=== PATIENT | female | born 1965 | race Caucasian/White ===

== ENCOUNTER 2017-06-20 16:01 | Inpatient (IN) ==
[2017-06-20] MEDS ORDERED: ALBUTEROL/IPRATROPIUM 3 ML NEB RESP TX PRN (16:26)
[2017-06-20] MEDS ORDERED: LACTULOSE 20 GM/30 ML UDCUP PO PRN (16:26)
[2017-06-20] MEDS ORDERED: ACETAMINOPHEN 325 MG TABLET PO PRN (16:26)
[2017-06-20] MEDS ORDERED: BENZONATATE 100 MG CAPSULE PO PRN (16:31)
--- NOTE | 2017-06-20 16:33 | Pulmonology History & Physical ---
History of Present Illness Chief complaint: RML pneumonia, SOB, fever, chills, cough History of present illness: FATEMEH Rodriguez acting as scribe for Dr. Merrill Quinones. Mrs. Simon is a 51 year old /White female admitted from the office on 06/20/17 for acute right middle lobe pneumonia. Patient was seen in the office yesterday as a work in for evaluation of cough, shortness of breath and fever. Symptoms had been present x 2 days and she noted cough was severe and persistent with yellow/green thick sputum production. She admits fever up to around 100 degrees at home. She also admits right sided rib soreness due to cough. Upon review of CXR patient was found to have acute nodular dense appearing infiltrate with air bronchograms in the right middle lobe. Due to the severity of her symptoms and findings of acute pneumonia combined with her past medical history, decision was made to admit to inpatient for further evaluation and treatment. She denies cardiac angina, palpitations, hemoptysis, reflux, solid dysphagia, syncope or near syncope, and symptoms of TIAs. The remainder of the review of systems is negative. ALLERGIES: LEVAQUIN (per clinic records) Home Medicines: ASA 81mg daily. Biotin 50mg daily. Coreg 6.25mg BID. Lasix 40mg BID. Lipitor 40mg at bedtime. Losartan 25mg daily. Magnesium BID. Metformin 1/2 tablet BID (dose not listed). Montelukast 10mg daily. Protonix 40mg daily. Paxil 10mg daily. MicroK 10meQ BID. Tranxene 3.75mg 1 or 2 tabs TID PRN. Ventolin HFA 90mcg/actuation 2 puffs QID PRN. Vitamin B12 1500mcg BID. Co-Q 10 daily. Past Medical History: November 2013 acute CHF with an atypical pattern. History of GERD and solid dysphagia. Bronchospastic disease/COPD. Non-ischemic cardiomyopathy. ICD single chamber pacemaker placed in February [address] Mills. History of pulmonary hypertension. Family History: Positive for heart disease and high blood pressure. Social History: Former smoker quit in 2013. Former alcohol use, denies at this time. . 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 She told me in clinic on 06/20/17 she is a fan of the [employer]. [place] [facility] [place], results as above. Labs and EKG are pending. Home Medications Medication Instructions Recorded Confirmed Type Atorvastatin Calcium 40 mg PO DAILY 01/20/15 01/02/17 History Carvedilol 6.25 mg PO BID 01/20/15 01/02/17 History Furosemide 40 mg PO BID 01/20/15 01/02/17 History Losartan [Cozaar] 25 mg PO DAILY 01/20/15 01/02/17 History Montelukast Sodium 10 mg PO DAILY 01/20/15 01/02/17 History Potassium Chloride Tab [K Dur] 10 meq PO BID 01/20/15 01/02/17 History Ascorbic Acid [Vitamin C] 250 mg PO DAILY 01/02/17 01/02/17 History Aspirin [Aspirin EC] 81 mg PO DAILY 01/02/17 01/02/17 History Biotin 5,000 mcg PO DAILY 01/02/17 01/02/17 History Cyanocobalamin (Vitamin B-12) 500 mcg PO BID 01/02/17 01/02/17 History [Vitamin B-12] Magnesium Chloride [Slow Mag] 64 mg PO BID 01/02/17 01/02/17 History Metformin HCl 250 mg PO BID 01/02/17 01/02/17 History [place]-3 Fatty Acids [Fish Oil 1,000 mg PO DAILY 01/02/17 01/02/17 History Concentrate] PARoxetine [Paxil] 10 mg PO DAILY 01/02/17 01/02/17 History Pantoprazole Tab [Protonix Tab] 40 mg PO DAILY 01/02/17 01/02/17 History Allergies Allergy/AdvReac Type Severity Reaction Status Date / Time No Known Allergies Allergy Verified 01/02/17 07:22 Medical,Surgical,& Family Hx - Medical History Cardio: History of: CHF, Hypertension, Pacemaker (2014), Cardiovascular Problems (CARDIOMYOPATHY) Neurology: No history of: Brain Aneurysm, Cerebral Hemorrhage, Cerebrovascular Accident , Cerebral Palsy, Dementia, Migraine, Multiple Sclerosis, Parkinson's Disease, Peripheral Neuropathy, Seizures, TIA, Vertigo, Neurologocal Cancer Endocrine: History of: Dyslipidemia Respiratory: History of: Bronchitis, Pneumonia Hematology: No history of: Anemia, Blood Transfusion Reaction, Bleeding Problems, Clotting Problems, Sickle Cell Disease, Hematologic Cancer, Blood Disorders Other: No history of: Anesthesia Reactions, Eczema, HIV - Surgical History Cardiac Surgeries: Sugical HX of: Cardiac Catheterization (2014), Internal Defibrillator (2014) Thoracic Surgeries: Patient denies;: Kidney (Renal Surgery), Organ Transplant Neurologic Surgeries: Patient denies: Brain Aneurysm, Cerebral Hemorrhage, Neurologic Surgery HEENT Surgeries: Patient denies: Eye Surgery, Thyroid Surgery, Tonsilectomy & Adenoidectomy Abdominal Surgeries: Patient denies: Abdominal Surgery Reproductive Surgeries: Patient denies;: Genitourinary Surgery - Family History Family History: Reports;: Family Diabetes, Family Hypertension - Social History Smoking Status: Former smoker Results - Labs CBC & BMP: 06/21/17 06:13 06/21/17 06:13 Exam (Pulmonay) H&P - Constitutional Exam: General. No acute distress. Acutely ill appearing. Psychiatric. Oriented 3. Pleasant and cooperative patient. Neurologic. Cranial nerves are intact. Long tract motor function intact. Sensory exam was not done. Gait appears normal. Face. Symmetrical. No masses or rashes. Neck. No meningismus. Thyroid was not palpated. Lymphatics. No submandibular cervical supraclavicular or epitrochlear adenopathy Chest. Symmetrical. Pacemaker present to left upper chest. There are faint rhonchi over the right anterior large airways and right basilar area. I do not hear any wheezing, but she has persistent cough during exam. Heart. Regular rate and rhythm. I do not hear a murmur or gallop. Abdomen. Nontender, nondistended. Bowel sounds are present and active. Extremities. No edema or evidence of deep venous thrombophlebitis. Venous. Exam of the upper and lower extremities normal. Arterial. Carotids normal with good upstroke and no bruits. Pulses of the upper and lower extremities palpable. The remainder the physical exam is negative. Impression: 1. Acute nodular dense appearing infiltrate in the right middle lobe compatible with pneumonia. 2. Fever, productive cough, shortness of breath, secondary to #1. 3. Right sided costochondritis. 4. Past history of non-ischemic cardiomyopathy. 5. History of congestive heart failure. 6. GERD 7. See past history. Plan: 1. Admit to acute inpatient for further evaluation and treatment. 2. Blood cultures x 3 sputums for gram stain culture and sensitivity. 3. Inhalation treatments with Duonebs QID and PRN. 4. IV Cleocin and Merrem as ordered. 5. Continue home medicines. 6. See orders.
[2017-06-20] MEDS ORDERED: CLORAZEPATE 3.75 MG TABLET PO PRN (17:01)
--- NOTE | 2017-06-20 18:07 | Order Completion Report ---
See report scanned to EMR
[2017-06-20 18:16] LABS: Magnesium 2.2 MG/DL (1.8-2.4); Thyroid Stimulating Hormone 2.78 uIU/ml (0.358-3.74)
[2017-06-20] MEDS: methylPREDNISolone SOD SUC 40 MG/1 ML VIAL IV SCH (18:20)
[2017-06-20] MEDS: CLINDAMYCIN INJ 300 MG in PREMIX 1 EACH IV SCH (18:25)
[2017-06-20 18:59] LABS: Apearance,Urine CLOUDY (Clear); Bilirubin,Urine Negative (Negative); Blood, Urine Large mg/dL (Negative); Glucose,Urine (UA) Negative (Negative); Ketones,Urine 5 mg/dL (Negative); Mucus,Urine Occasional /LPF (Occasional); Nitrite,Urine Negative (Negative); Protein,Urine 100 MG/DL; RBC,Urine 368 /HPF (0-4); Squamous Epithelial Cell,Urine Few /HPF (0-10); Urine Specific Gravity 1.016 (1.001-1.035); WBC,Urine 12 /HPF (0-6)
[2017-06-20 19:00] LABS: Urine Color Yellow (Yellow)
[2017-06-20 19:08] LABS: Calcium 8.9 MG/DL (8.5-10.1); Osmolality,Calculated 275.5 MOS/KG (273-304); Potassium 3.2 MMOL/L (3.5-5.1)
[2017-06-20] MEDS: ALBUTEROL/IPRATROPIUM 3 ML NEB RESP TX SCH (20:06)
[2017-06-20] MEDS: MEROPENEM 1,000 MG in SODIUM CHLORIDE 0.9% 50 ML IV SCH (20:38)
[2017-06-20] MEDS: MAGNESIUM CHLORIDE 64 MG TABLET PO SCH (20:46)
[2017-06-20] MEDS: CYANOCOBALAMIN 500 MCG TABLET PO SCH (20:46)
[2017-06-20] MEDS: POTASSIUM CHLORIDE 10 MEQ TABLET PO SCH (20:47)
[2017-06-20] MEDS: ZALEPLON 5 MG CAPSULE PO PRN (20:47)
[2017-06-20] MEDS: ATORVASTATIN 40 MG TABLET PO SCH (20:48)
[2017-06-20] MEDS: CARVEDILOL 6.25 MG TABLET PO SCH (20:48)
[2017-06-20] MEDS: MONTELUKAST 10 MG TABLET PO SCH (20:53)
[2017-06-21] MEDS: CLINDAMYCIN INJ 300 MG in PREMIX 1 EACH IV SCH ×4 (00:26→17:42)
[2017-06-21] MEDS: MEROPENEM 1,000 MG in SODIUM CHLORIDE 0.9% 50 ML IV SCH ×3 (04:28→20:20)
[2017-06-21] MEDS: methylPREDNISolone SOD SUC 40 MG/1 ML VIAL IV SCH ×2 (05:56→17:42)
[2017-06-21 06:28] LABS: Basophils % 0.4 % (0.0-0.8); Hematocrit 36.8 VOL% (35.7-47.0); Immature Granulocytes % 0.4 %; Immature Granulocytes Absolute 0.01 #; Lymphocytes % 38.1 % (21.3-54.2); Mean Corpuscular HGB Conc 35.3 GM/DL (32-36); Mean Corpuscular Hemoglobin 32 PG (27-34); Mean Corpuscular Volume 91.1 FL (87-102); Mean Platelet Volume 9.4 FL (9.6-12.0); Monocytes # 0.3 10*3/uL (0.11-0.8); Monocytes % 9.3 % (1.7-12.7); Neutrophils # 1.4 10*3/uL (1.4-7.4); Neutrophils % 51.8 % (38.7-73.9); Platelet Count 189 T/CUMM (130-400); Red Blood Count 4.04 MC/CUMM (3.8-5.5); Red Cell Distribution Width 12.6 % (9.3-17.3); White Blood Count 2.7 T/CUMM (4-12)
[2017-06-21 06:56] LABS: Calcium 9.2 MG/DL (8.5-10.1); Osmolality,Calculated 283.1 MOS/KG (273-304); Potassium 3.8 MMOL/L (3.5-5.1)
[2017-06-21] MEDS: ALBUTEROL/IPRATROPIUM 3 ML NEB RESP TX SCH ×4 (07:32→19:15)
--- NOTE | 2017-06-21 08:26 | XRay Report ---
XR chest 2V Date: 06/21/2017 4:00 AM History: Pneumonia Comparison: 01/20/2015 Technique: PA and lateral chest Findings: The heart remains normal in size with stable left subclavian ventricular AICD. Somewhat nodular appearing parenchymal findings are noted in the right middle lobe. Stable mediastinum with minimal degenerative changes. Impression: Stable left subclavian ventricular AICD. Right middle lobe pneumonia. There is associated nodular findings. Therefore follow-up chest x-ray is recommended to document clearing and exclude additional underlying pathology/mass. PROCEDURE INTERPRETED AT [facility] Final Report Signed by: Dr. Natalia Wesley
[2017-06-21] MEDS: CARVEDILOL 6.25 MG TABLET PO SCH ×2 (08:27→20:24)
[2017-06-21] MEDS: ASPIRIN EC 81 MG TABLET PO SCH (08:27)
[2017-06-21] MEDS: FUROSEMIDE 40 MG TABLET PO SCH ×2 (08:27→16:07)
[2017-06-21] MEDS: CYANOCOBALAMIN 500 MCG TABLET PO SCH ×2 (08:28→20:25)
[2017-06-21] MEDS: MAGNESIUM CHLORIDE 64 MG TABLET PO SCH ×2 (08:29→20:24)
[2017-06-21] MEDS: PARoxetine 10 MG TABLET PO SCH (08:29)
[2017-06-21] MEDS: LOSARTAN 25 MG TABLET PO SCH (08:29)
[2017-06-21] MEDS: MONTELUKAST 10 MG TABLET PO SCH ×2 (08:29→20:24)
[2017-06-21] MEDS: PANTOPRAZOLE 40 MG TABLET PO SCH (08:29)
[2017-06-21] MEDS: POTASSIUM CHLORIDE 10 MEQ TABLET PO SCH ×2 (08:29→20:24)
--- NOTE | 2017-06-21 10:41 | Pulmonology Progress Note ---
Pulmonary - PN: Subj Interval history: Dawoodvibha Olivarez, [facility] acting as scribe for Dr. Merrill Quinones Ms. Simon is a 51-year-old white female who was admitted [facility]/20/[facility]. At the time of admission, our impressions were: 1. Acute nodular dense appearing infiltrate in the right middle lobe compatible with pneumonia. 2. Fever, productive cough, shortness of breath, secondary to #1. 3. Right sided costochondritis. 4. Past history of non-ischemic cardiomyopathy. 5. History of congestive heart failure. 6. GERD 7. See past history 06/21/2017. The patient was seen today along with Ines Hameed RN. Chest x-ray today shows that the previously noted right middle lobe infiltrate is slowly improving. She reports a cough, but it is largely nonproductive. Sputum for Gram stain, culture and sensitivity was ordered admission, however, the patient has been unable to expectorate any sputum. Cold agglutinins are negative at 1: 2. Legionella is pending. Pro-calcitonin was ordered today. Patient does report night sweats last night. She has remained afebrile since admission. She is presently being treated with Cleocin and Merrem. Of note, the patient does have history of tobacco abuse, but did stop smoking in 2013. Medications have been reviewed. We made no changes today. Labs been reviewed. White count is 2700 with a normal differential; H&H 13.0/ 36.8; platelet count 199,000; creatinine 0.70, BUN 11, electrolytes are normal; TSH and free T4 were both normal; urinalysis showed trace leukocytes with 12 WBCs per high-power field Microbiology has been reviewed. Urine culture has shown no growth at 12 hours. Exam (Progress Note) - Constitutional Vitals: Period Temp Pulse Resp BP Sys/Rodríguez Pulse Ox Last 24 Hr 97.8 F-98.6 F 59-82 14-20 114-137/63-83 97-99 Exam: Chest faint rhonchi over the right anterior large airways; no appreciable wheeze Heart no gallop Abdomen is nontender and nondistended; bowel sounds are positive 4 Extremities with nothing to suggest acute deep venous thrombophlebitis Psychiatric oriented 3 Neurologic long-term motor function is intact Plan: Continue present treatment. Pro-calcitonin level today. Follow-up sputum Gram stain, culture and sensitivity when available. We told the patient she will most likely require inpatient treatment until approximately Sunday of next week. See orders. Results - Labs CBC & BMP: 06/21/17 06:13 06/21/17 06:13
[2017-06-21] MEDS: ATORVASTATIN 40 MG TABLET PO SCH (20:25)
[2017-06-21] MEDS: ZALEPLON 5 MG CAPSULE PO PRN ×2 (20:25→22:01)
[2017-06-22] MEDS: CLINDAMYCIN INJ 300 MG in PREMIX 1 EACH IV SCH ×5 (00:10→23:38)
[2017-06-22] MEDS: MEROPENEM 1,000 MG in SODIUM CHLORIDE 0.9% 50 ML IV SCH ×3 (03:32→20:37)
[2017-06-22] MEDS: methylPREDNISolone SOD SUC 40 MG/1 ML VIAL IV SCH ×2 (06:14→17:31)
[2017-06-22 06:44] LABS: Basophils % 0.2 % (0.0-0.8); Hemoglobin 12.4 GM/DL (12.0-16.0); Immature Granulocytes % 0.4 %; Immature Granulocytes Absolute 0.02 #; Lymphocytes # 1.4 10*3/uL (1.4-4.0); Mean Corpuscular HGB Conc 34.4 GM/DL (32-36); Mean Corpuscular Hemoglobin 32 PG (27-34); Mean Corpuscular Volume 93.3 FL (87-102); Mean Platelet Volume 10.1 FL (9.6-12.0); Monocytes # 0.4 10*3/uL (0.11-0.8); Monocytes % 7.4 % (1.7-12.7); Neutrophils # 3.6 10*3/uL (1.4-7.4); Platelet Count 201 T/CUMM (130-400); Red Blood Count 3.86 MC/CUMM (3.8-5.5); White Blood Count 5.4 T/CUMM (4-12)
[2017-06-22 07:13] LABS: Calcium 9.2 MG/DL (8.5-10.1); Osmolality,Calculated 287.8 MOS/KG (273-304); Potassium 3.8 MMOL/L (3.5-5.1)
[2017-06-22] MEDS: ALBUTEROL/IPRATROPIUM 3 ML NEB RESP TX SCH ×4 (07:45→19:35)
[2017-06-22] MEDS: FUROSEMIDE 40 MG TABLET PO SCH ×2 (09:15→17:31)
[2017-06-22] MEDS: CYANOCOBALAMIN 500 MCG TABLET PO SCH ×2 (09:15→20:38)
[2017-06-22] MEDS: MONTELUKAST 10 MG TABLET PO SCH ×2 (09:16→20:39)
[2017-06-22] MEDS: PARoxetine 10 MG TABLET PO SCH (09:16)
[2017-06-22] MEDS: LOSARTAN 25 MG TABLET PO SCH (09:16)
[2017-06-22] MEDS: MAGNESIUM CHLORIDE 64 MG TABLET PO SCH ×2 (09:16→20:39)
[2017-06-22] MEDS: PANTOPRAZOLE 40 MG TABLET PO SCH (09:16)
[2017-06-22] MEDS: ASPIRIN EC 81 MG TABLET PO SCH (09:16)
[2017-06-22] MEDS: CARVEDILOL 6.25 MG TABLET PO SCH ×2 (09:16→20:39)
[2017-06-22] MEDS: POTASSIUM CHLORIDE 10 MEQ TABLET PO SCH ×2 (09:16→20:38)
[2017-06-22] MEDS ORDERED: AMINOPHYLLINE 250 MG in SODIUM CHLORIDE 0.9% 100 ML IV ONE (11:38)
--- NOTE | 2017-06-22 11:44 | Pulmonology Progress Note ---
Pulmonary - PN: Subj Interval history: Dawoodvibha BradyJuanis, [facility]-, acting as scribe for Dr. Merrill Quinones Ms. Simon is a 51-year-old white female who was admitted 06/20/2017 from [facility]. At the time of admission, our impressions were: 1. Acute nodular dense appearing infiltrate in the right middle lobe compatible with pneumonia. 2. Fever, productive cough, shortness of breath, secondary to #1. 3. Right sided costochondritis. 4. Past history of non-ischemic cardiomyopathy. 5. History of congestive heart failure. 6. GERD 7. See past history 06/21/2017. The patient was seen today along with Ines Hameed RN. Chest x-ray today shows that the previously noted right middle lobe infiltrate is slowly improving. She reports a cough, but it is largely nonproductive. Sputum for Gram stain, culture and sensitivity was ordered admission, however, the patient has been unable to expectorate any sputum. Cold agglutinins are negative at 1: 2. Legionella is pending. Pro-calcitonin was ordered today. Patient does report night sweats last night. She has remained afebrile since admission. She is presently being treated with Cleocin and Merrem. Of note, the patient does have history of tobacco abuse, but did stop smoking in 2013. Medications have been reviewed. We made no changes today. Labs been reviewed. White count is 2700 with a normal differential; H&H 13.0/ 36.8; platelet count 199,000; creatinine 0.70, BUN 11, electrolytes are normal; TSH and free T4 were both normal; urinalysis showed trace leukocytes with 12 WBCs per high-power field Microbiology has been reviewed. Urine culture has shown no growth at 12 hours. 06/22/2017. On today's chest exam, the patient has a large airway wheeze which is not been audible on previous chest exams. There is also an element of high- pitched peripheral wheezes. She is already on Singulair 10 mg twice daily. We are going to add IV Aminophyllin. We will start her with a 250 mg bolus every 4 hours then run at 15 mg/h. Will start daily theophylline levels tomorrow. Also, as an outpatient she was taking Metformin 250 mg before breakfast and supper. This had not been restarted and I am unsure why. Nonetheless, we have now restarted it and will check glucoses before meals twice daily and as needed. Despite being on Solu-Medrol, her highest recorded glucose is only 134. She has still been unable to expectorate a sputum for testing. The collection device is in her room. Medications have been reviewed. We made no changes today other than the addition of Aminophyllin as above. Labs have been reviewed. White count is 5400 with a normal differential; H&H 12.4/36.0; platelet count 201,000; creatinine 0.70, BUN 12, electrolytes are normal Microbiology has been reviewed. Blood cultures are negative thus far. Urine cultures negative. Exam (Progress Note) - Constitutional Vitals: Period Temp Pulse Resp BP Sys/Rodríguez Pulse Ox Last 24 Hr 97.1 F-98.4 F 54-90 16-20 112-133/65-75 95-99 Exam: Chest... See above Heart no gallop Abdomen is nontender and nondistended; bowel sounds are positive 4 Extremities with nothing to suggest acute deep venous thrombophlebitis Psychiatric oriented 3 Neurologic long-term motor function is intact Plan: Follow-up pro-calcitonin level when available. Start Aminophyllin as above. Restart metformin as above. Accu-Cheks before meals twice daily and as needed. Repeat chest x-ray and CBC on Sunday. Daily theophylline level beginning tomorrow. See orders. Results - Labs CBC & BMP: 06/22/17 05:22 06/22/17 05:22
[2017-06-22] MEDS ORDERED: AMINOPHYLLINE 500 MG in SODIUM CHLORIDE 0.9% 480 ML IV SCH (16:05)
[2017-06-22] MEDS: metFORMIN 500 MG TABLET PO SCH (17:31)
[2017-06-22] MEDS: ATORVASTATIN 40 MG TABLET PO SCH (20:39)
[2017-06-22] MEDS: ZALEPLON 5 MG CAPSULE PO PRN ×2 (20:54→21:51)
[2017-06-23] MEDS: MEROPENEM 1,000 MG in SODIUM CHLORIDE 0.9% 50 ML IV SCH ×3 (04:46→20:22)
[2017-06-23 05:26] LABS: Basophils % 0.2 % (0.0-0.8); Eosinophils % 0.2 % (0.00-10.9); Hematocrit 39.2 VOL% (35.7-47.0); Hemoglobin 13.4 GM/DL (12.0-16.0); Immature Granulocytes % 0.6 %; Immature Granulocytes Absolute 0.04 #; Lymphocytes # 1.9 10*3/uL (1.4-4.0); Lymphocytes % 30.2 % (21.3-54.2); Mean Corpuscular HGB Conc 34.2 GM/DL (32-36); Mean Corpuscular Hemoglobin 32 PG (27-34); Mean Corpuscular Volume 92.2 FL (87-102); Mean Platelet Volume 9.5 FL (9.6-12.0); Monocytes # 0.4 10*3/uL (0.11-0.8); Monocytes % 5.8 % (1.7-12.7); Platelet Count 218 T/CUMM (130-400); Red Blood Count 4.25 MC/CUMM (3.8-5.5); White Blood Count 6.4 T/CUMM (4-12)
[2017-06-23] MEDS: CLINDAMYCIN INJ 300 MG in PREMIX 1 EACH IV SCH ×4 (05:32→23:36)
[2017-06-23] MEDS: methylPREDNISolone SOD SUC 40 MG/1 ML VIAL IV SCH ×2 (05:32→18:07)
[2017-06-23 05:53] LABS: Calcium 8.9 MG/DL (8.5-10.1); Osmolality,Calculated 281.1 MOS/KG (273-304); Potassium 3.3 MMOL/L (3.5-5.1)
[2017-06-23] MEDS: ALBUTEROL/IPRATROPIUM 3 ML NEB RESP TX SCH ×4 (07:44→19:04)
[2017-06-23] MEDS: PARoxetine 10 MG TABLET PO SCH (08:36)
[2017-06-23] MEDS: CYANOCOBALAMIN 500 MCG TABLET PO SCH ×2 (08:36→20:22)
[2017-06-23] MEDS: PANTOPRAZOLE 40 MG TABLET PO SCH (08:37)
[2017-06-23] MEDS: LOSARTAN 25 MG TABLET PO SCH (08:37)
[2017-06-23] MEDS: metFORMIN 500 MG TABLET PO SCH ×2 (08:37→16:23)
[2017-06-23] MEDS: MAGNESIUM CHLORIDE 64 MG TABLET PO SCH ×2 (08:37→20:21)
[2017-06-23] MEDS: MONTELUKAST 10 MG TABLET PO SCH ×2 (08:37→20:21)
[2017-06-23] MEDS: CARVEDILOL 6.25 MG TABLET PO SCH ×2 (08:37→20:21)
[2017-06-23] MEDS: ASPIRIN EC 81 MG TABLET PO SCH (08:37)
[2017-06-23] MEDS: POTASSIUM CHLORIDE 10 MEQ TABLET PO SCH (08:37)
[2017-06-23] MEDS: FUROSEMIDE 40 MG TABLET PO SCH ×2 (08:37→16:23)
--- NOTE | 2017-06-23 09:40 | Pulmonology Progress Note ---
Pulmonary - PN: Subj Interval history: Ms. Simon is a 51-year-old white female who was admitted 06/20/2017 from [facility]. At the time of admission, our impressions were: 1. Acute nodular dense appearing infiltrate in the right middle lobe compatible with pneumonia. 2. Fever, productive cough, shortness of breath, secondary to #1. 3. Right sided costochondritis. 4. Past history of non-ischemic cardiomyopathy. 5. History of congestive heart failure. 6. GERD 7. See past history 06/21/2017. The patient was seen today along with Ines Hameed RN. Chest x-ray today shows that the previously noted right middle lobe infiltrate is slowly improving. She reports a cough, but it is largely nonproductive. Sputum for Gram stain, culture and sensitivity was ordered admission, however, the patient has been unable to expectorate any sputum. Cold agglutinins are negative at 1: 2. Legionella is pending. Pro-calcitonin was ordered today. Patient does report night sweats last night. She has remained afebrile since admission. She is presently being treated with Cleocin and Merrem. Of note, the patient does have history of tobacco abuse, but did stop smoking in 2013. Medications have been reviewed. We made no changes today. Labs been reviewed. White count is 2700 with a normal differential; H&H 13.0/ 36.8; platelet count 199,000; creatinine 0.70, BUN 11, electrolytes are normal; TSH and free T4 were both normal; urinalysis showed trace leukocytes with 12 WBCs per high-power field Microbiology has been reviewed. Urine culture has shown no growth at 12 hours. 06/22/2017. On today's chest exam, the patient has a large airway wheeze which is not been audible on previous chest exams. There is also an element of high- pitched peripheral wheezes. She is already on Singulair 10 mg twice daily. We are going to add IV Aminophyllin. We will start her with a 250 mg bolus every 4 hours then run at 15 mg/h. Will start daily theophylline levels tomorrow. Also, as an outpatient she was taking Metformin 250 mg before breakfast and supper. This had not been restarted and I am unsure why. Nonetheless, we have now restarted it and will check glucoses before meals twice daily and as needed. Despite being on Solu-Medrol, her highest recorded glucose is only 134. She has still been unable to expectorate a sputum for testing. The collection device is in her room. Medications have been reviewed. We made no changes today other than the addition of Aminophyllin as above. Labs have been reviewed. White count is 5400 with a normal differential; H&H 12.4/36.0; platelet count 201,000; creatinine 0.70, BUN 12, electrolytes are normal Microbiology has been reviewed. Blood cultures are negative thus far. Urine cultures negative. 06/23/2017. Patient has become afebrile. There are no positive cultures yet. I have converted her IV Aminophyllin to theophylline 200 mg p.o. twice daily. Potassium is running low. The patient is on 10 mEq twice daily and I have increased this to 20 mEq twice daily. White blood cell count is now 6463 segs 30 labs. Creatinine is 0.7 with a BUN of 10. Patient has much less wheezing today. There is a good bit of loose large airway congestion I think she will begin to mobilize sputum soon. She feels better she had no diaphoresis she is afebrile. Glucoses are under much better control Exam (Progress Note) - Constitutional Vitals: Period Temp Pulse Resp BP Sys/Rodríguez Pulse Ox Last 24 Hr 97.1 F-98.4 F 54-90 16-20 112-133/65-75 95-99 Exam: General. Comfortable in bed. Face. Symmetrical. No edema of the lips or tongue. Lymphatics. No submandibular cervical supraclavicular or epitrochlear adenopathy. Neck. Symmetrical. No meningismus. Chest... See above Heart no gallop Abdomen is nontender and nondistended; bowel sounds are positive 4 Extremities with nothing to suggest acute deep venous thrombophlebitis Psychiatric oriented 3 Neurologic long-term motor function is intact The remainder the physical exam is negative Plan: 06/22/2017. 1. Follow-up pro-calcitonin level when available. 2. Start Aminophyllin as above. 3. Restart metformin as above. 4. Accu-Cheks before meals twice daily and as needed. 5. Repeat chest x-ray and CBC on Sunday. 7. Daily theophylline level beginning tomorrow. 8. See orders. 06/23/2017. 1. Micro-K 20 mEq twice daily 2. DC IV Aminophyllin 3. Start theophylline 200 p.o. twice daily 4. Monitor glucoses 5. Chest x-ray CBC on Sunday. 6. See today's note above Exam (Progress Note) - Constitutional Vitals: Period Temp Pulse Resp BP Sys/Rodríguez Pulse Ox Last 24 Hr 97.6 F-98.6 F 60-80 16-20 114-141/66-86 93-99 Results - Labs CBC & BMP: 06/23/17 04:44 06/23/17 04:44
[2017-06-23] MEDS: POTASSIUM CHLORIDE 20 MEQ TABLET PO SCH ×2 (10:54→20:21)
[2017-06-23] MEDS: THEOPHYLLINE ER (24 HR) 400 MG CAPSULE PO SCH (16:23)
[2017-06-23] MEDS: ATORVASTATIN 40 MG TABLET PO SCH (20:21)
[2017-06-23] MEDS: ZALEPLON 5 MG CAPSULE PO PRN ×2 (20:49→22:04)
[2017-06-24] MEDS: MEROPENEM 1,000 MG in SODIUM CHLORIDE 0.9% 50 ML IV SCH ×3 (04:23→20:17)
[2017-06-24] MEDS: methylPREDNISolone SOD SUC 40 MG/1 ML VIAL IV SCH ×2 (05:41→17:42)
[2017-06-24] MEDS: CLINDAMYCIN INJ 300 MG in PREMIX 1 EACH IV SCH ×4 (05:44→23:37)
[2017-06-24] MEDS: ALBUTEROL/IPRATROPIUM 3 ML NEB RESP TX SCH ×4 (07:34→19:06)
[2017-06-24] MEDS: metFORMIN 500 MG TABLET PO SCH ×2 (10:20→16:54)
[2017-06-24] MEDS: CYANOCOBALAMIN 500 MCG TABLET PO SCH ×2 (10:21→20:15)
[2017-06-24] MEDS: MAGNESIUM CHLORIDE 64 MG TABLET PO SCH ×2 (10:21→20:15)
[2017-06-24] MEDS: MONTELUKAST 10 MG TABLET PO SCH ×2 (10:22→20:15)
[2017-06-24] MEDS: PANTOPRAZOLE 40 MG TABLET PO SCH (10:22)
[2017-06-24] MEDS: PARoxetine 10 MG TABLET PO SCH (10:23)
[2017-06-24] MEDS: POTASSIUM CHLORIDE 20 MEQ TABLET PO SCH ×2 (10:23→20:15)
[2017-06-24] MEDS: CARVEDILOL 6.25 MG TABLET PO SCH ×2 (10:24→20:15)
[2017-06-24] MEDS: LOSARTAN 25 MG TABLET PO SCH (10:24)
[2017-06-24] MEDS: FUROSEMIDE 40 MG TABLET PO SCH ×2 (10:25→16:53)
[2017-06-24] MEDS: ASPIRIN EC 81 MG TABLET PO SCH (10:25)
--- NOTE | 2017-06-24 10:35 | Pulmonology Progress Note ---
Pulmonary - PN: Subj Interval history: Ms. Simon is a 51-year-old white female who was admitted [facility]/20/2017 from [facility]. At the time of admission, our impressions were: 1. Acute nodular dense appearing infiltrate in the right middle lobe compatible with pneumonia. 2. Fever, productive cough, shortness of breath, secondary to #1. 3. Right sided costochondritis. 4. Past history of non-ischemic cardiomyopathy. 5. History of congestive heart failure. 6. GERD 7. See past history 06/21/2017. The patient was seen today along with Ines Hameed RN. Chest x-ray today shows that the previously noted right middle lobe infiltrate is slowly improving. She reports a cough, but it is largely nonproductive. Sputum for Gram stain, culture and sensitivity was ordered admission, however, the patient has been unable to expectorate any sputum. Cold agglutinins are negative at 1: 2. Legionella is pending. Pro-calcitonin was ordered today. Patient does report night sweats last night. She has remained afebrile since admission. She is presently being treated with Cleocin and Merrem. Of note, the patient does have history of tobacco abuse, but did stop smoking in 2013. Medications have been reviewed. We made no changes today. Labs been reviewed. White count is 2700 with a normal differential; H&H 13.0/ 36.8; platelet count 199,000; creatinine 0.70, BUN 11, electrolytes are normal; TSH and free T4 were both normal; urinalysis showed trace leukocytes with 12 WBCs per high-power field Microbiology has been reviewed. Urine culture has shown no growth at 12 hours. 06/22/2017. On today's chest exam, the patient has a large airway wheeze which is not been audible on previous chest exams. There is also an element of high- pitched peripheral wheezes. She is already on Singulair 10 mg twice daily. We are going to add IV Aminophyllin. We will start her with a 250 mg bolus every 4 hours then run at 15 mg/h. Will start daily theophylline levels tomorrow. Also, as an outpatient she was taking Metformin 250 mg before breakfast and supper. This had not been restarted and I am unsure why. Nonetheless, we have now restarted it and will check glucoses before meals twice daily and as needed. Despite being on Solu-Medrol, her highest recorded glucose is only 134. She has still been unable to expectorate a sputum for testing. The collection device is in her room. Medications have been reviewed. We made no changes today other than the addition of Aminophyllin as above. Labs have been reviewed. White count is 5400 with a normal differential; H&H 12.4/36.0; platelet count 201,000; creatinine 0.70, BUN 12, electrolytes are normal Microbiology has been reviewed. Blood cultures are negative thus far. Urine cultures negative. 06/23/2017. Patient has become afebrile. There are no positive cultures yet. I have converted her IV Aminophyllin to theophylline 200 mg p.o. twice daily. Potassium is running low. The patient is on 10 mEq twice daily and I have increased this to 20 mEq twice daily. White blood cell count is now 6463 segs 30 labs. Creatinine is 0.7 with a BUN of 10. Patient has much less wheezing today. There is a good bit of loose large airway congestion I think she will begin to mobilize sputum soon. She feels better she had no diaphoresis she is afebrile. Glucoses are under much better control 06/24/2017. Today's theophylline level is 9.8. Patient's lungs continued to improve on a daily basis. Management of rather dramatic improvement and wheezes to the been noted over the past few days. Potassium was increased yesterday. BMP will be repeated tomorrow along with a CBC and a chest x-ray. This patient has a right middle lung pneumonia which was dense. If she continues to improve we should be able to discharge her home on p.o. antibiotics. None of the cultures have grown. Cold agglutinins were negative. Glucoses continued to improve. Exam (Progress Note) - Constitutional Vitals: Period Temp Pulse Resp BP Sys/Rodríguez Pulse Ox Last 24 Hr 97.1 F-98.4 F 54-90 16-20 112-133/65-75 95-99 Exam: General. Comfortable in bed. Face. Symmetrical. No edema of the lips or tongue. Lymphatics. No submandibular cervical supraclavicular or epitrochlear adenopathy. Neck. Symmetrical. No meningismus. Chest... Nearly wheeze free. Previously noted large and small airway wheezes are about resolved and the previous noted large airway congestion is much better Heart no gallop Abdomen is nontender and nondistended; bowel sounds are positive 4 Extremities with nothing to suggest acute deep venous thrombophlebitis Psychiatric oriented 3 Neurologic long-term motor function is intact The remainder the physical exam is negative Plan: 06/22/2017. 1. Follow-up pro-calcitonin level when available. 2. Start Aminophyllin as above. 3. Restart metformin as above. 4. Accu-Cheks before meals twice daily and as needed. 5. Repeat chest x-ray and CBC on Sunday. 7. Daily theophylline level beginning tomorrow. 8. See orders. 06/23/2017. 1. Micro-K 20 mEq twice daily 2. DC IV Aminophyllin 3. Start theophylline 200 p.o. twice daily 4. Monitor glucoses 5. Chest x-ray CBC on Sunday. 6. See today's note above 06/24/2017. 1. See today's note above. 2. BMP, CBC, chest x-ray in a.m. 3. Possible discharge on Sunday 4. Glucose is looking much better 5. Chest sounds much better Exam (Progress Note) - Constitutional Vitals: Period Temp Pulse Resp BP Sys/Rodríguez Pulse Ox Last 24 Hr 97.0 F-98.1 F 64-88 16-18 101-132/63-75 93-99 Results - Labs CBC & BMP: 06/23/17 04:44 06/23/17 04:44
[2017-06-24] MEDS: THEOPHYLLINE ER (24 HR) 400 MG CAPSULE PO SCH (16:53)
[2017-06-24] MEDS: ATORVASTATIN 40 MG TABLET PO SCH (20:15)
[2017-06-24] MEDS: ZALEPLON 5 MG CAPSULE PO PRN ×2 (21:18→22:41)
[2017-06-25] MEDS: MEROPENEM 1,000 MG in SODIUM CHLORIDE 0.9% 50 ML IV SCH ×2 (03:42→11:08)
[2017-06-25] MEDS: methylPREDNISolone SOD SUC 40 MG/1 ML VIAL IV SCH (05:38)
[2017-06-25] MEDS: CLINDAMYCIN INJ 300 MG in PREMIX 1 EACH IV SCH (05:41)
[2017-06-25 07:27] LABS: Basophils % 0.1 % (0.0-0.8); Eosinophils % 0.1 % (0.00-10.9); Hematocrit 39.9 VOL% (35.7-47.0); Hemoglobin 13.5 GM/DL (12.0-16.0); Immature Granulocytes % 0.9 %; Immature Granulocytes Absolute 0.07 #; Lymphocytes # 2.7 10*3/uL (1.4-4.0); Lymphocytes % 33.4 % (21.3-54.2); Mean Corpuscular HGB Conc 33.8 GM/DL (32-36); Mean Corpuscular Hemoglobin 31 PG (27-34); Mean Corpuscular Volume 92.8 FL (87-102); Mean Platelet Volume 9.5 FL (9.6-12.0); Monocytes # 0.6 10*3/uL (0.11-0.8); Monocytes % 7.9 % (1.7-12.7); Neutrophils # 4.7 10*3/uL (1.4-7.4); Neutrophils % 57.6 % (38.7-73.9); Platelet Count 247 T/CUMM (130-400); Red Cell Distribution Width 12.9 % (9.3-17.3); White Blood Count 8.1 T/CUMM (4-12)
[2017-06-25] MEDS: ALBUTEROL/IPRATROPIUM 3 ML NEB RESP TX SCH ×2 (07:30→11:03)
[2017-06-25] MEDS: metFORMIN 500 MG TABLET PO SCH (07:42)
[2017-06-25 07:55] LABS: Osmolality,Calculated 278.7 MOS/KG (273-304); Potassium 3.6 MMOL/L (3.5-5.1)
--- NOTE | 2017-06-25 08:24 | XRay Report ---
XR chest 2V Indication: Pneumonia Comparison: 21 June 2017 Findings: The heart and mediastinum are normal in size and configuration. Pacemaker device is unchanged in position. The pulmonary vascularity is normal in caliber. Right lower lung density is slightly improved. No other lung infiltrates, effusions, pneumothorax or other abnormality is demonstrated. Impression: Mild improvement of right lower lung density. No other interval changes. PROCEDURE INTERPRETED AT [facility] DEPARTMENT OF RADIOLOGY Final Report Signed by: Dr. Leonard Painter
[2017-06-25] MEDS: FUROSEMIDE 40 MG TABLET PO SCH (08:29)
[2017-06-25] MEDS: POTASSIUM CHLORIDE 20 MEQ TABLET PO SCH (08:30)
[2017-06-25] MEDS: MAGNESIUM CHLORIDE 64 MG TABLET PO SCH (08:30)
[2017-06-25] MEDS: ASPIRIN EC 81 MG TABLET PO SCH (08:31)
[2017-06-25] MEDS: PANTOPRAZOLE 40 MG TABLET PO SCH (08:32)
[2017-06-25] MEDS: CARVEDILOL 6.25 MG TABLET PO SCH (08:32)
[2017-06-25] MEDS: MONTELUKAST 10 MG TABLET PO SCH (08:33)
[2017-06-25] MEDS: LOSARTAN 25 MG TABLET PO SCH (08:33)
[2017-06-25 10:40] VITALS: BP 107/72
--- NOTE | 2017-06-25 10:43 | Pulmonology Progress Note ---
Pulmonary - PN: Subj Interval history: Dawoodvibha BradyJuanis, [facility]-, acting as scribe for Dr. Merrill Quinones Ms. Simon is a 51-year-old white female who was admitted [facility]. At the time of admission, our impressions were: 1. Acute nodular dense appearing infiltrate in the right middle lobe compatible with pneumonia. 2. Fever, productive cough, shortness of breath, secondary to #1. 3. Right sided costochondritis. 4. Past history of non-ischemic cardiomyopathy. 5. History of congestive heart failure. 6. GERD 7. See past history 06/21/2017. The patient was seen today along with Ines Hameed RN. Chest x-ray today shows that the previously noted right middle lobe infiltrate is slowly improving. She reports a cough, but it is largely nonproductive. Sputum for Gram stain, culture and sensitivity was ordered admission, however, the patient has been unable to expectorate any sputum. Cold agglutinins are negative at 1: 2. Legionella is pending. Pro-calcitonin was ordered today. Patient does report night sweats last night. She has remained afebrile since admission. She is presently being treated with Cleocin and Merrem. Of note, the patient does have history of tobacco abuse, but did stop smoking in 2013. Medications have been reviewed. We made no changes today. Labs been reviewed. White count is 2700 with a normal differential; H&H 13.0/ 36.8; platelet count 199,000; creatinine 0.70, BUN 11, electrolytes are normal; TSH and free T4 were both normal; urinalysis showed trace leukocytes with 12 WBCs per high-power field Microbiology has been reviewed. Urine culture has shown no growth at 12 hours. 06/22/2017. On today's chest exam, the patient has a large airway wheeze which is not been audible on previous chest exams. There is also an element of high- pitched peripheral wheezes. She is already on Singulair 10 mg twice daily. We are going to add IV Aminophyllin. We will start her with a 250 mg bolus every 4 hours then run at 15 mg/h. Will start daily theophylline levels tomorrow. Also, as an outpatient she was taking Metformin 250 mg before breakfast and supper. This had not been restarted and I am unsure why. Nonetheless, we have now restarted it and will check glucoses before meals twice daily and as needed. Despite being on Solu-Medrol, her highest recorded glucose is only 134. She has still been unable to expectorate a sputum for testing. The collection device is in her room. Medications have been reviewed. We made no changes today other than the addition of Aminophyllin as above. Labs have been reviewed. White count is 5400 with a normal differential; H&H 12.4/36.0; platelet count 201,000; creatinine 0.70, BUN 12, electrolytes are normal Microbiology has been reviewed. Blood cultures are negative thus far. Urine cultures negative. 06/23/2017. Patient has become afebrile. There are no positive cultures yet. I have converted her IV Aminophyllin to theophylline 200 mg p.o. twice daily. Potassium is running low. The patient is on 10 mEq twice daily and I have increased this to 20 mEq twice daily. White blood cell count is now 6463 segs 30 labs. Creatinine is 0.7 with a BUN of 10. Patient has much less wheezing today. There is a good bit of loose large airway congestion I think she will begin to mobilize sputum soon. She feels better she had no diaphoresis she is afebrile. Glucoses are under much better control 06/24/2017. Today's theophylline level is 9.8. Patient's lungs continued to improve on a daily basis. Management of rather dramatic improvement and wheezes to the been noted over the past few days. Potassium was increased yesterday. BMP will be repeated tomorrow along with a CBC and a chest x-ray. This patient has a right middle lung pneumonia which was dense. If she continues to improve we should be able to discharge her home on p.o. antibiotics. None of the cultures have grown. Cold agglutinins were negative. Glucoses continued to improve. 06/25/2017. The patient was seen today along with Ines Hameed RN. Chest x-ray today shows a faint residual infiltrate, but it is approximately 90% resolved and lags behind her clinical improvement. She continues to cough and will do so for several weeks. Overall she feels markedly improved since admission. Sputum culture only grew yeast and this will be treated with Diflucan. She is now stable enough to be treated in the outpatient setting. Medications have been reviewed. Labs been reviewed. White count is 8100 with a normal differential; H&H 13.5/ 39.9; platelet count 247,000; creatinine 0.70, BUN 23, electrolytes were normal ; theophylline level 8.7 Microbiology has been reviewed. Blood cultures are negative. Urine culture grew no organisms. Sputum culture only grew yeast. Exam (Progress Note) - Constitutional Vitals: Period Temp Pulse Resp BP Sys/Rodríguez Pulse Ox Last 24 Hr 97.0 F-98.1 F 70-88 16-18 105-124/60-79 92-100 Exam: Chest is fairly clear Heart no gallop Abdomen is nontender and nondistended; bowel sounds are positive 4 Extremities with nothing to suggest acute deep venous thrombophlebitis Psychiatric oriented 3 Neurologic long-term motor function is intact Plan: The patient has now met maximum hospital benefit and can safely be discharged home. Please see the discharge summary for more information. Results - Labs CBC & BMP: 06/25/17 06:06 06/25/17 06:06
--- NOTE | 2017-06-25 10:50 | Discharge Summary ---
Hospital Course - Hospital Course Hospital Course: Dawood Olivarez, [facility], acting as scribe for Dr. Merrill Quinones Mrs. Simon is a 51-year-old white female who was admitted 06/20/2017 from [facility] secondary to an acute right middle lobe pneumonia. She complained of cough, shortness of breath, and fever. Her sputum was discolored yellow/green and was thick and hard to mobilize. She reported fever of approximately 100. Given her acute illness and comorbidities, it was felt in her best interest to hospitalize her for further evaluation care. The patient was admitted and started on IV antibiotics of Cleocin and Merrem. Sputum Gram stain showed many yeast, few gram-positive rods, few gram-positive cocci in clusters, many white blood cells. Sputum culture, however, only grew yeast, but this was not a yeast pneumonia. This will be treated with Diflucan 200 mg daily for 7 days. On the above-mentioned antibiotics, the patient's infiltrate has resolved approximately 90%, but does lag behind her clinical improvement. Early on in the hospitalization, the patient developed large airway and high- pitched peripheral wheezes. She was started on Singulair and initially IV Aminophyllin which was quickly converted to oral theophylline. She is tolerating both these medications well and with him her wheezes have resolved. These will be continued. She also required Solu-Medrol. She is diabetic and is on low-dose metformin. Sliding scale insulin was not needed. Even with the Solu-Medrol, her highest recorded glucose was 224. We have instructed the patient to stay off of work until 07/02/2017. She will have a follow-up appointment with Neena Weir, nurse practitioner, in approximately 1 month with a chest x-ray, CBC, and theophylline level. She could be seen sooner if needed. Blood cultures grew no organisms. Urine culture grew no organisms. Cold agglutinins were negative at 1:2. Legionella is pending at the time of discharge. Pro-calcitonin level was less than 0.10. At discharge, white count is 8100 with 57.6% segs, 33.4% lymphs, and 7.9% monos ; H&H 13.5/39.9 with normal indices and normal red blood cell distribution width ; platelet count 247,000; creatinine 0.70, BUN 23, sodium 138, potassium 3.6, magnesium 2.2; calcium 8.9; TSH was normal at 2.780 and free T4 was normal at 1.10; urinalysis showed trace leukocytes with 12 WBCs per high-power field; theophylline level 8.7. For more information regarding Mrs. Simon's past medical history, family history, social history, admit labs, admit x-ray and admit exam, see the admission note dated 06/20/2017. Impression: 1. Acute right middle lobe pneumonia. 2. Fever, productive cough, shortness of breath, secondary to #1. Resolved. 3. Right sided costochondritis. Resolved. 4. Past history of non-ischemic cardiomyopathy. 5. History of congestive heart failure. 6. GERD 7. See past history. Plan: Diflucan 200 mg daily for 7 days, prednisone 10 mg daily for 7 days then 10 mg every other day for 8 doses, Ceftin 500 mg twice daily for 7 days, Cleocin 300 mg 3 times daily for 7 days, vitamin B12 500 mcg twice daily, Lipitor 40 mg at bedtime, enteric-coated baby aspirin 81 mg daily, K-Dur 20 milliequivalents twice daily, Protonix 40 mg daily, Paxil 10 mg at bedtime, Singulair 10 mg twice daily, metformin 200 mg twice daily, Slow-Mag 64 mg twice daily, Cozaar 25 mg daily, Lasix 40 mg twice daily, Coreg 6.25 mg twice daily, Mucinex 600 mg twice daily, theophylline 400 mg daily, and Tessalon 200 mg 3 times daily as needed cough. She has been scheduled to follow-up with Neena Weir, nurse practitioner, in approximately 1 month with a chest x-ray, CBC, and theophylline level. She could be seen sooner if needed. We have asked her to stay off work until 2016. Specialty Discharge - Follow Up or Referrals Follow up with: Neena Weir CFNP [Advanced Practice Nurse] - 1 Month (with CXR, CBC, and Theophylline level) Discharge Plan - Discharge Data Disposition: Disch To Home/Self Care Condition at Discharge: Stable Discharge Diet: diabetic diet - Discharge Medications New Benzonatate [Tessalon] 200 mg PO TID PRN #60 capsule PRN Reason: Cough Clindamycin Cap [Cleocin Cap] 300 mg PO Q8HR #21 capsule Fluconazole Tab [Diflucan Tab] 200 mg PO DAILY #7 tablet Montelukast Tab [Singulair Tab] 10 mg PO BID #60 tablet Potassium Chloride Cap/Tab [K Dur] 20 meq PO BID #60 tablet guaiFENesin ER TAB [Mucinex] 600 mg PO BID #60 tablet predniSONE TAB [PredniSONE] 10 mg PO DIRECTED #15 tablet Cefuroxime Tab [Ceftin] 500 mg PO BID #14 tablet Theophylline ER Cap (24 Hr) [Sang-24] 400 mg PO Q24H #30 capsule Continue Losartan [Cozaar] 25 mg PO DAILY Furosemide 40 mg PO BID Carvedilol 6.25 mg PO BID Atorvastatin Calcium 40 mg PO DAILY Magnesium Chloride [Slow Mag] 64 mg PO BID Metformin HCl 250 mg PO BID Aspirin [Aspirin EC] 81 mg PO DAILY Cyanocobalamin (Vitamin B-12) [Vitamin B-12] 500 mcg PO BID PARoxetine [Paxil] 10 mg PO BEDTIME Pantoprazole Tab [Protonix Tab] 40 mg PO DAILY Discontinued Potassium Chloride Tab [K Dur] 10 meq PO BID Montelukast Sodium 10 mg PO QPM - Follow Up or Referral - Forms/Instructions Exam - Constitutional Vitals: Period Temp Pulse Resp BP Sys/Rodríguez Pulse Ox Last 24 Hr 97.0 F-98.1 F 70-88 16-18 105-124/60-79 92-100 Discharge Results Procedures and tests throughout hospitalization: Pending Orders 06/20/17 17:20 Legionella Pneumophilia Ab Routine 06/20/17 18:01 Blood Culture Routine 06/22/17 16:31 Sputum Culture and Gram Stain Routine Labs on day of discharge: Labs from last 24 hours 06/25/17 06/25/17 06/25/17 07:34 06:06 06:06 WBC RBC Hgb Hct MCV MCH MCHC RDW Plt Count MPV Neut % (Auto) Lymph % (Auto) [place] % (Auto) Eos % (Auto) Baso % (Auto) Neut # (Auto) Lymph # (Auto) [place] # (Auto) Eos # (Auto) Baso # (Auto) Immature Gran % Nucleated RBC % Immature Gran # Nucleated RBCs # Immature Plt Fraction Sodium 138 Potassium 3.6 Chloride 99 Carbon Dioxide 31 Anion Gap 11.6 BUN 23 H Creatinine 0.70 GFR Calculation 95 BUN/Creatinine Ratio 32.00 H Glucose 106 POC Glucose 94 Calculated Osmolality 278.7 Calcium 9.0 Theophylline 8.7 L 06/25/17 06/24/17 06/24/17 06:06 21:23 16:12 WBC 8.1 RBC 4.30 Hgb 13.5 Hct 39.9 MCV 92.8 MCH 31 MCHC 33.8 RDW 12.9 Plt Count 247 MPV 9.5 L Neut % (Auto) 57.6 Lymph % (Auto) 33.4 [place] % (Auto) 7.9 Eos % (Auto) 0.1 Baso % (Auto) 0.1 Neut # (Auto) 4.7 Lymph # (Auto) 2.7 [place] # (Auto) 0.6 Eos # (Auto) 0.0 Baso # (Auto) 0.0 Immature Gran % 0.9 Nucleated RBC % 0.0 Immature Gran # 0.07 Nucleated RBCs # 0.00 Immature Plt Fraction 0.0 Sodium Potassium Chloride Carbon Dioxide Anion Gap BUN Creatinine GFR Calculation BUN/Creatinine Ratio Glucose POC Glucose 153 H 112 H Calculated Osmolality Calcium Theophylline 06/24/17 06:46 WBC RBC Hgb Hct MCV MCH MCHC RDW Plt Count MPV Neut % (Auto) Lymph % (Auto) [place] % (Auto) Eos % (Auto) Baso % (Auto) Neut # (Auto) Lymph # (Auto) [place] # (Auto) Eos # (Auto) Baso # (Auto) Immature Gran % Nucleated RBC % Immature Gran # Nucleated RBCs # Immature Plt Fraction Sodium Potassium Chloride Carbon Dioxide Anion Gap BUN Creatinine GFR Calculation BUN/Creatinine Ratio Glucose POC Glucose 108 H Calculated Osmolality Calcium Theophylline Preliminary micro results at discharge 06/22/17 16:31 Sputum Culture - Preliminary Sputum Yeast 06/20/17 18:01 Blood Culture - Preliminary Blood No growth at 3 days 06/20/17 18:33 Blood Culture - Preliminary Blood No growth at 3 days 06/20/17 17:21 Blood Culture - Preliminary Blood No growth at 3 days DS: Provider Date of admission: 06/20/17 16:51 Primary care physician: Atif Mills MD Attending physician on admission: Merrill Quinones MD Discharging clinician: DARYL Villasenor
[2017-06-25] MEDS: PARoxetine 10 MG TABLET PO SCH (11:10)
[2017-06-25] MEDS: CYANOCOBALAMIN 500 MCG TABLET PO SCH (11:10)
== END 2017-06-25 13:08 | disposition home or self-care (01) | DRG 194 ==
LOC: N.5E 16:51
PROVIDERS: ADMIT Internal Medicine Pulmonary Disease; ATTEND Internal Medicine Pulmonary Disease

== ENCOUNTER 2020-07-06 16:42 | Observation (INO) ==
[2020-07-06 17:26] LABS: Basophils % 0.2 % (0.0-0.8); Eosinophils % 0.3 % (0.00-10.9); Hematocrit 36.5 VOL% (35.7-47.0); Hemoglobin 12.6 GM/DL (12.0-16.0); Immature Granulocytes % 0.3 %; Immature Granulocytes Absolute 0.02 #; Lymphocytes # 0.4 10*3/uL (1.4-4.0); Lymphocytes % 6.4 % (21.3-54.2); Mean Corpuscular HGB Conc 34.5 GM/DL (32-36); Mean Corpuscular Volume 93.6 FL (87-102); Mean Platelet Volume 8.9 FL (9.6-12.0); Neutrophils % 91.8 % (38.7-73.9); Platelet Count 154 T/CUMM (130-400); White Blood Count 5.8 T/CUMM (4-12)
[2020-07-06] MEDS ORDERED: ACETAMINOPHEN 500 MG TABLET PO STA (17:45)
[2020-07-06] MEDS ORDERED: ACETAMINOPHEN 500 MG TABLET ONE ×2 (17:47)
[2020-07-06 17:48] LABS: Albumin 3.6 G/DL (3.4-5.0); Bilirubin,Total 0.7 MG/DL (0.2-1.0); Calcium 9.1 MG/DL (8.5-10.1); Osmolality,Calculated 269.2 MOS/KG (273-304); Total Protein 7.7 G/DL (6.4-8.3)
[2020-07-06 18:40] LABS: Bacteria,Urine Occasional /HPF (Few); Bilirubin,Urine Negative (Negative); Blood, Urine Large mg/dL (Negative); Glucose,Urine (UA) Negative (Negative); Ketones,Urine Negative (Negative); Mucus,Urine Occasional /LPF (Occasional); Nitrite,Urine Negative (Negative); Protein,Urine 30 MG/DL; RBC,Urine 97 /HPF (0-4); Squamous Epithelial Cell,Urine Occasional /HPF (0-10); Urine Appearance CLEAR (Clear); Urine Color Yellow (Yellow); WBC,Urine 38 /HPF (0-6)
[2020-07-06 19:14] LABS: Segmented Neutrophils 98 % (50-85); Total Cells Counted 100
[2020-07-06 19:15] LABS: Hypochromasia 1+; Macrocytosis Slight
[2020-07-06 19:16] LABS: Stomatocytes 1+; Toxic Granulation 2+
[2020-07-06 19:17] LABS: Platelet Estimate Decreased; Polychromasia Slight
[2020-07-06] MEDS ORDERED: cefTRIAXone 1,000 MG in SODIUM CHLORIDE 0.9% 100 ML IV STA (19:44)
[2020-07-06] MEDS ORDERED: POTASSIUM CHLORIDE 20 MEQ TABLET PO STA (20:09)
[2020-07-06] MEDS ORDERED: DEXAMETHASONE 4 MG/1 ML VIAL IV STA (20:11)
[2020-07-06] MEDS ORDERED: ONDANSETRON 4 MG/2 ML VIAL IV PRN (21:29)
[2020-07-06] MEDS ORDERED: SODIUM CHLORIDE 0.9% 1,000 ML IV SCH (21:29)
[2020-07-06] MEDS: FUROSEMIDE 40 MG TABLET PO SCH (22:06)
[2020-07-06] MEDS: carvediloL 12.5 MG TABLET PO SCH (22:06)
[2020-07-06] MEDS: DOCUSATE SODIUM 100 MG CAPSULE PO SCH (22:06)
[2020-07-06] MEDS: MONTELUKAST 10 MG TABLET PO SCH (22:06)
[2020-07-06] MEDS: FAMOTIDINE 20 MG/2 ML VIAL IV SCH (22:06)
[2020-07-07 03:43] LABS: Basophils % 0.1 % (0.0-0.8); Hematocrit 34.8 VOL% (35.7-47.0); Hemoglobin 11.9 GM/DL (12.0-16.0); Immature Granulocytes % 0.7 %; Immature Granulocytes Absolute 0.06 #; Lymphocytes # 0.5 10*3/uL (1.4-4.0); Lymphocytes % 6.4 % (21.3-54.2); Mean Corpuscular HGB Conc 34.2 GM/DL (32-36); Mean Corpuscular Volume 95.1 FL (87-102); Mean Platelet Volume 9.6 FL (9.6-12.0); Monocytes % 2.4 % (1.7-12.7); Neutrophils % 90.4 % (38.7-73.9); Platelet Count 163 T/CUMM (130-400); Red Blood Count 3.66 MC/CUMM (3.8-5.5); Red Cell Distribution Width 12.1 % (9.3-17.3); White Blood Count 8.5 T/CUMM (4-12)
[2020-07-07 04:09] LABS: Albumin 3.2 G/DL (3.4-5.0); Bilirubin,Total 0.5 MG/DL (0.2-1.0); Calcium 8.5 MG/DL (8.5-10.1); Total Protein 7.2 G/DL (6.4-8.3)
[2020-07-07] MEDS ORDERED: AZITHROMYCIN 250 MG TABLET PO ONE (07:42)
[2020-07-07] MEDS ORDERED: POTASSIUM CHLORIDE INJ 20 MEQ in SODIUM CHLORIDE 0.9% 1,000 ML IV SCH (07:48)
[2020-07-07] MEDS: DEXAMETHASONE 10 MG/1 ML VIAL IV SCH (09:00)
[2020-07-07] MEDS: ASPIRIN EC 81 MG TABLET PO SCH (09:01)
[2020-07-07] MEDS: PANTOPRAZOLE 40 MG TABLET PO SCH (09:02)
[2020-07-07] MEDS: ZINC SULFATE 220 MG CAPSULE PO SCH (09:02)
[2020-07-07] MEDS: POTASSIUM CHLORIDE 10 MEQ TABLET PO SCH (09:02)
[2020-07-07] MEDS: carvediloL 12.5 MG TABLET PO SCH ×2 (09:03→17:32)
[2020-07-07] MEDS: DOCUSATE SODIUM 100 MG CAPSULE PO SCH ×2 (09:03→21:25)
[2020-07-07] MEDS: CHOLECALCIFEROL 1,000 UNIT TABLET PO SCH (09:03)
[2020-07-07] MEDS: LOSARTAN 25 MG TABLET PO SCH (09:03)
[2020-07-07] MEDS: FUROSEMIDE 40 MG TABLET PO SCH ×2 (09:03→21:25)
[2020-07-07] MEDS: CYANOCOBALAMIN 500 MCG TABLET PO SCH (09:03)
[2020-07-07] MEDS: FAMOTIDINE 20 MG/2 ML VIAL IV SCH ×2 (09:04→21:26)
[2020-07-07] MEDS: ENOXAPARIN 40 MG/0.4 ML SYRINGE SUBCUT SCH (09:04)
[2020-07-07] MEDS: ASCORBIC ACID 500 MG TABLET PO SCH (09:04)
[2020-07-07] MEDS: SODIUM CHLOR 0.9% KCL 20 MEQ 20 MEQ/1,000 ML BAG IV SCH ×2 (10:05→21:41)
[2020-07-07] MEDS: INSULIN LISPRO 100 UNIT/ML SUBCUT SCH ×3 (12:13→21:26)
[2020-07-07] MEDS: ACETAMINOPHEN 325 MG TABLET PO PRN ×2 (16:30→21:30)
[2020-07-07] MEDS: MONTELUKAST 10 MG TABLET PO SCH (21:25)
[2020-07-07] MEDS: ATORVASTATIN 40 MG TABLET PO SCH (21:25)
[2020-07-07] MEDS: cefTRIAXone 1,000 MG in SYRINGE 1 EACH IV SCH (21:26)
[2020-07-08] MEDS: ACETAMINOPHEN 325 MG TABLET PO PRN ×2 (05:30→21:17)
[2020-07-08 05:48] LABS: Basophils % 0.2 % (0.0-0.8); Hematocrit 32.8 VOL% (35.7-47.0); Hemoglobin 10.8 GM/DL (12.0-16.0); Immature Granulocytes % 2.6 %; Immature Granulocytes Absolute 0.29 #; Lymphocytes # 0.7 10*3/uL (1.4-4.0); Lymphocytes % 6.1 % (21.3-54.2); Mean Corpuscular HGB Conc 32.9 GM/DL (32-36); Mean Corpuscular Volume 96.8 FL (87-102); Mean Platelet Volume 9.9 FL (9.6-12.0); Monocytes % 3.5 % (1.7-12.7); Neutrophils % 87.6 % (38.7-73.9); Platelet Count 150 T/CUMM (130-400); Red Blood Count 3.39 MC/CUMM (3.8-5.5); Red Cell Distribution Width 12.5 % (9.3-17.3); White Blood Count 11.3 T/CUMM (4-12)
[2020-07-08 06:12] LABS: Albumin 2.8 G/DL (3.4-5.0); Bilirubin,Total 0.5 MG/DL (0.2-1.0); Calcium 8.4 MG/DL (8.5-10.1); Osmolality,Calculated 284.1 MOS/KG (273-304); Total Protein 6.7 G/DL (6.4-8.3)
[2020-07-08 06:24] LABS: Band Neutrophils 3 % (0-10); Hypochromasia 1+; Lymphocytes 4 % (20-55); Microcytosis 1+; Ovalocytes Slight; Platelet Estimate Adequate; Segmented Neutrophils 91 % (50-85); Total Cells Counted 100
[2020-07-08] MEDS: INSULIN LISPRO 100 UNIT/ML SUBCUT SCH ×4 (08:29→21:17)
[2020-07-08] MEDS: DEXAMETHASONE 10 MG/1 ML VIAL IV SCH (08:30)
[2020-07-08] MEDS: LOSARTAN 25 MG TABLET PO SCH (08:30)
[2020-07-08] MEDS: FUROSEMIDE 40 MG TABLET PO SCH ×2 (08:30→21:17)
[2020-07-08] MEDS: ASCORBIC ACID 500 MG TABLET PO SCH (08:31)
[2020-07-08] MEDS: CYANOCOBALAMIN 500 MCG TABLET PO SCH (08:31)
[2020-07-08] MEDS: carvediloL 12.5 MG TABLET PO SCH ×2 (08:31→16:52)
[2020-07-08] MEDS: POTASSIUM CHLORIDE 10 MEQ TABLET PO SCH (08:31)
[2020-07-08] MEDS: ASPIRIN EC 81 MG TABLET PO SCH (08:31)
[2020-07-08] MEDS: PANTOPRAZOLE 40 MG TABLET PO SCH (08:31)
[2020-07-08] MEDS: CHOLECALCIFEROL 1,000 UNIT TABLET PO SCH (08:31)
[2020-07-08] MEDS: ZINC SULFATE 220 MG CAPSULE PO SCH (08:31)
[2020-07-08] MEDS: ENOXAPARIN 40 MG/0.4 ML SYRINGE SUBCUT SCH (08:32)
[2020-07-08] MEDS: FAMOTIDINE 20 MG/2 ML VIAL IV SCH ×2 (08:32→21:16)
[2020-07-08] MEDS ORDERED: AZITHROMYCIN 250 MG TABLET PO SCH (09:00)
[2020-07-08] MEDS: SODIUM CHLOR 0.9% KCL 20 MEQ 20 MEQ/1,000 ML BAG IV SCH (13:19)
[2020-07-08] MEDS: ATORVASTATIN 40 MG TABLET PO SCH (21:17)
[2020-07-08] MEDS: cefTRIAXone 1,000 MG in SYRINGE 1 EACH IV SCH (21:17)
[2020-07-08] MEDS: MONTELUKAST 10 MG TABLET PO SCH (21:17)
[2020-07-09 05:52] LABS: Basophils % 0.1 % (0.0-0.8); Hematocrit 30.8 VOL% (35.7-47.0); Hemoglobin 10.5 GM/DL (12.0-16.0); Immature Granulocytes % 0.6 %; Immature Granulocytes Absolute 0.06 #; Lymphocytes # 0.8 10*3/uL (1.4-4.0); Lymphocytes % 9.1 % (21.3-54.2); Mean Corpuscular HGB Conc 34.1 GM/DL (32-36); Mean Corpuscular Volume 95.1 FL (87-102); Monocytes % 3.9 % (1.7-12.7); Neutrophils % 86.3 % (38.7-73.9); Platelet Count 161 T/CUMM (130-400); Red Blood Count 3.24 MC/CUMM (3.8-5.5); Red Cell Distribution Width 12.4 % (9.3-17.3); White Blood Count 9.3 T/CUMM (4-12)
[2020-07-09 06:08] LABS: Calcium 8.2 MG/DL (8.5-10.1); Osmolality,Calculated 284.1 MOS/KG (273-304); Risk Ratio 2.58; VLDL CHOLESTEROL 17.8 MG/DL
[2020-07-09 06:25] LABS: Band Neutrophils 2 % (0-10); Hypochromasia 1+; Lymphocytes 4 % (20-55); Segmented Neutrophils 93 % (50-85); Total Cells Counted 100
[2020-07-09 06:26] LABS: Microcytosis 1+; Ovalocytes Slight; Platelet Estimate Adequate
[2020-07-09] MEDS: INSULIN LISPRO 100 UNIT/ML SUBCUT SCH (07:29)
[2020-07-09 07:36] VITALS: BP 162/80
[2020-07-09] MEDS ORDERED: CIPROFLOXACIN 500 MG TABLET PO SCH (09:00)
[2020-07-09] MEDS: ENOXAPARIN 40 MG/0.4 ML SYRINGE SUBCUT SCH (09:30)
[2020-07-09] MEDS: LOSARTAN 25 MG TABLET PO SCH (09:31)
[2020-07-09] MEDS: POTASSIUM CHLORIDE 10 MEQ TABLET PO SCH (09:31)
[2020-07-09] MEDS: ASCORBIC ACID 500 MG TABLET PO SCH (09:31)
[2020-07-09] MEDS: ZINC SULFATE 220 MG CAPSULE PO SCH (09:31)
[2020-07-09] MEDS: CHOLECALCIFEROL 1,000 UNIT TABLET PO SCH (09:31)
[2020-07-09] MEDS: carvediloL 12.5 MG TABLET PO SCH (09:31)
[2020-07-09] MEDS: CYANOCOBALAMIN 500 MCG TABLET PO SCH (09:31)
[2020-07-09] MEDS: ASPIRIN EC 81 MG TABLET PO SCH (09:31)
[2020-07-09] MEDS: FUROSEMIDE 40 MG TABLET PO SCH (09:31)
[2020-07-09] MEDS: PANTOPRAZOLE 40 MG TABLET PO SCH (09:31)
[2020-07-09] MEDS: DEXAMETHASONE 10 MG/1 ML VIAL IV SCH (09:32)
[2020-07-09] MEDS: FAMOTIDINE 20 MG/2 ML VIAL IV SCH (09:38)
== END 2020-07-09 11:22 | disposition home or self-care (01) ==
LOC: N.EDINP 16:42 → N.ED 16:42 → N.2E 20:46
PROVIDERS: ADMIT Family Medicine; ATTEND Family Medicine

== ENCOUNTER 2021-04-18 18:36 | Inpatient (IN) ==
[2021-04-18] MEDS ORDERED: ONDANSETRON 4 MG/2 ML VIAL ONE (18:38)
[2021-04-18] MEDS ORDERED: NITROGLYCERIN 2% OINT 1 INCH/GM PACK TOP ONE (18:38)
[2021-04-18] MEDS ORDERED: FUROSEMIDE 40 MG/4 ML VIAL ONE (18:38)
[2021-04-18] MEDS ORDERED: ETOMIDATE 20 MG/10 ML VIAL IV ONE (18:49)
[2021-04-18] MEDS ORDERED: VECURONIUM 10 MG VIAL IV ONE ×3 (18:49→23:14)
[2021-04-18] MEDS ORDERED: ONDANSETRON 4 MG/2 ML VIAL IV STA (19:08)
[2021-04-18] MEDS ORDERED: NITROGLYCERIN 2% OINT 1 INCH/GM PACK TOP STA (19:08)
[2021-04-18] MEDS ORDERED: MORPHINE 2 MG/1 ML SYRINGE IV STA (19:08)
[2021-04-18] MEDS ORDERED: FUROSEMIDE 100 MG/10 ML VIAL IV STA (19:08)
[2021-04-18 19:13] LABS: ABG Base Excess -15.8 MMOL/L (-2.5-2.5); ABG HCO3 12.8 MMOL/L (20-26); ABG Oxygen Saturation 90.7 % (95-100); ABG PCO2 50.3 MM HG (35-48); ABG PO2 89.7 MM HG (80-95); ABG TCO2 13.9 MMOL/L (23-27); Allen Test Positive; Pt O2 Delivery Device Ventilator
[2021-04-18 19:14] LABS: ABG PH 7.089 (7.35-7.45)
[2021-04-18 19:17] LABS: Basophils % 0.4 % (0.0-0.8); Eosinophils # 0.1 10*3/uL (0.0-0.87); Eosinophils % 1.3 % (0.00-10.9); Hematocrit 49.8 VOL% (35.7-47.0); Hemoglobin 16.2 GM/DL (12.0-16.0); Immature Granulocytes % 0.3 %; Immature Granulocytes Absolute 0.02 #; Lymphocytes # 4.7 10*3/uL (1.4-4.0); Lymphocytes % 62.8 % (21.3-54.2); Mean Corpuscular HGB Conc 32.5 GM/DL (32-36); Mean Corpuscular Volume 95.8 FL (87-102); Mean Platelet Volume 10.6 FL (9.6-12.0); Monocytes % 2.8 % (1.7-12.7); Neutrophils % 32.4 % (38.7-73.9); Platelet Count 259 T/CUMM (130-400); White Blood Count 7.5 T/CUMM (4-12)
[2021-04-18 19:25] LABS: INR 0.9; Partial Thromboplastin Time 25.5 SECS (23.9-33.8)
[2021-04-18 19:35] LABS: Albumin 4.1 G/DL (3.4-5.0); Bilirubin,Total 0.4 MG/DL (0.20-1.00); Calcium 9.7 MG/DL (8.5-10.1); Osmolality,Calculated 282.3 MOS/KG (273-304); Potassium 4.2 MMOL/L (3.5-5.1); Total Protein 8.6 G/DL (6.4-8.2)
[2021-04-18 19:48] LABS: Bacteria,Urine Occasional /HPF (Few); Bilirubin,Urine Negative (Negative); Blood, Urine Large mg/dL (Negative); Glucose,Urine (UA) Negative (Negative); Ketones,Urine Negative (Negative); Mucus,Urine Occasional /LPF (Occasional); Nitrite,Urine Negative (Negative); Protein,Urine Negative; RBC,Urine 51 /HPF (0-4); Squamous Epithelial Cell,Urine Occasional /HPF (0-10); Urine Appearance CLEAR (Clear); Urine Color Yellow (Yellow); Urine Specific Gravity 1.016 (1.001-1.035)
[2021-04-18 19:53] LABS: Barbiturates Screen,Urine Negative (Negative); Benzodiazepines Screen,Urine Negative (Negative); Cannabinoid Screen,Urine Negative (Negative); Opiate Screen,Urine Negative (Negative); Phencyclidine Screen,Urine Negative (Negative)
[2021-04-18] MEDS ORDERED: methylPREDNISolone SOD SUC 125 MG/2 ML VIAL IV STA (19:57)
[2021-04-18] MEDS ORDERED: ENOXAPARIN 100 MG/ML SYRINGE SUBCUT STA (20:04)
[2021-04-18] MEDS ORDERED: DILTIAZEM 50 MG/10 ML VIAL IV STA (21:05)
[2021-04-18] MEDS ORDERED: AMIODARONE INJ 150 MG in DEXTROSE 5% 100 ML IV ONE (21:06)
[2021-04-18] MEDS ORDERED: LORazepam 2 MG/1 ML VIAL IV PRN (21:09)
[2021-04-18] MEDS ORDERED: LORazepam 2 MG/1 ML VIAL IV STA ×2 (21:09→22:30)
[2021-04-18] MEDS ORDERED: ALBUTEROL 2.5 MG/3 ML NEB RESP TX PRN (21:10)
[2021-04-18] MEDS ORDERED: ONDANSETRON 4 MG/2 ML VIAL IV PRN (21:11)
[2021-04-18] MEDS: ENOXAPARIN 40 MG/0.4 ML SYRINGE SUBCUT SCH (21:23)
[2021-04-18] MEDS ORDERED: DILTIAZEM INJ 100 MG in SODIUM CHLORIDE 0.9% 100 ML IV SCH (21:30)
[2021-04-18] MEDS ORDERED: LACTATED RINGERS 1,000 ML IV SCH (21:30)
[2021-04-18] MEDS ORDERED: SODIUM BICARBONATE 50 MEQ/50 ML VIAL IV ONE (22:18)
[2021-04-18] MEDS ORDERED: SODIUM BICARBONATE 50 MEQ/50 ML VIAL IV STA (22:20)
[2021-04-18] MEDS ORDERED: NOREPINEPHRINE 8 MG in SODIUM CHLORIDE 0.9% 242 ML IV PRN (22:29)
[2021-04-18] MEDS ORDERED: NOREPINEPHRINE 4 MG/4 ML VIAL IV ONE (22:29)
[2021-04-18 22:30] LABS: ABG Base Excess -6.7 MMOL/L (-2.5-2.5); ABG HCO3 18.8 MMOL/L (20-26); ABG Oxygen Saturation 86.5 % (95-100); ABG PCO2 38.7 MM HG (35-48); ABG PH 7.305 (7.35-7.45); ABG PO2 60.6 MM HG (80-95); ABG TCO2 16.7 MMOL/L (23-27); Allen Test Positive; Pt O2 Delivery Device Ventilator
[2021-04-18] MEDS ORDERED: CALCIUM CHLORIDE 1,000 MG/10 ML SYRINGE IV STA (22:30)
[2021-04-18] MEDS ORDERED: CALCIUM CHLORIDE 1,000 MG/10 ML SYRINGE IV ONE (22:40)
[2021-04-18] MEDS ORDERED: MIDAZOLAM 100 MG in SODIUM CHLORIDE 0.9% 80 ML IV PRN (23:13)
[2021-04-18] MEDS ORDERED: VECURONIUM 10 MG VIAL IV STA (23:16)
[2021-04-19] MEDS: MEROPENEM 500 MG in SODIUM CHLORIDE 0.9% 100 ML IV SCH ×4 (00:50→18:12)
[2021-04-19] MEDS: PANTOPRAZOLE 40 MG VIAL IV SCH (01:38)
[2021-04-19 04:30] LABS: ABG HCO3 24.5 MMOL/L (20-26); ABG Oxygen Saturation 99.9 % (95-100); ABG PCO2 21.3 MM HG (35-48); ABG PH 7.577 (7.35-7.45); ABG TCO2 16.9 MMOL/L (23-27)
[2021-04-19 05:31] LABS: Basophils % 0.1 % (0.0-0.8); Hematocrit 41.5 VOL% (35.7-47.0); Immature Granulocytes % 0.5 %; Immature Granulocytes Absolute 0.04 #; Lymphocytes # 0.6 10*3/uL (1.4-4.0); Lymphocytes % 7.9 % (21.3-54.2); Mean Corpuscular HGB Conc 32.5 GM/DL (32-36); Mean Corpuscular Volume 94.3 FL (87-102); Mean Platelet Volume 9.6 FL (9.6-12.0); Monocytes % 1.6 % (1.7-12.7); Neutrophils % 89.9 % (38.7-73.9); Red Cell Distribution Width 12.9 % (9.3-17.3); White Blood Count 8.1 T/CUMM (4-12)
[2021-04-19 05:39] LABS: Hemoglobin 13.5 GM/DL (12.0-16.0)
[2021-04-19 05:40] LABS: Platelet Count 192 T/CUMM (130-400)
[2021-04-19 05:54] LABS: Albumin 3.1 G/DL (3.4-5.0); Bilirubin,Total 0.9 MG/DL (0.20-1.00); Calcium 9.3 MG/DL (8.5-10.1); Osmolality,Calculated 295.7 MOS/KG (273-304); Potassium 3.2 MMOL/L (3.5-5.1); Total Protein 6.5 G/DL (6.4-8.2)
[2021-04-19] MEDS ORDERED: HydrOXYzine PAMOATE 50 MG CAPSULE PO PRN (09:50)
[2021-04-19] MEDS ORDERED: METHOCARBAMOL 750 MG TABLET PO PRN (09:50)
[2021-04-19] MEDS ORDERED: DICYCLOMINE 10 MG CAPSULE PO PRN (09:50)
[2021-04-19] MEDS ORDERED: GLUCAGON 1 MG VIAL IM PRN (09:53)
[2021-04-19] MEDS ORDERED: DEXTROSE 50% 25 GM/50 ML VIAL IV PRN (09:53)
[2021-04-19] MEDS ORDERED: FUROSEMIDE 40 MG/4 ML VIAL IV ONE (10:00)
[2021-04-19] MEDS ORDERED: POTASSIUM BICARB EFFERVESCENT 20 MEQ TAB.EFF PO ONE (10:00)
[2021-04-19] MEDS ORDERED: MULTIVITAMIN LIQUID (CENTRUM) 60 ML BOTTLE PO SCH (10:00)
[2021-04-19] MEDS ORDERED: MORPHINE 2 MG/1 ML SYRINGE ONE (10:29)
[2021-04-19] MEDS ORDERED: MORPHINE 2 MG/1 ML SYRINGE IV ONE (10:30)
[2021-04-19] MEDS: FOLIC ACID 1 MG TABLET PO SCH (10:40)
[2021-04-19] MEDS: THIAMINE 100 MG TABLET PO SCH (10:41)
[2021-04-19 10:51] LABS: ABG Base Excess 3.4 MMOL/L (-2.5-2.5); ABG HCO3 27.4 MMOL/L (20-26); ABG Oxygen Saturation 94.2 % (95-100); ABG PCO2 35.7 MM HG (35-48); ABG PH 7.481 (7.35-7.45); ABG PO2 72.1 MM HG (80-95); ABG TCO2 22.9 MMOL/L (23-27); Allen Test Positive; Pt O2 Delivery Device Ventilator
[2021-04-19] MEDS: INSULIN LISPRO 100 UNIT/ML SUBCUT SCH ×2 (12:56→17:46)
[2021-04-19 15:06] LABS: ABG Base Excess 5.7 MMOL/L (-2.5-2.5); ABG HCO3 29.5 MMOL/L (20-26); ABG Oxygen Saturation 97.3 % (95-100); ABG PCO2 40.2 MM HG (35-48); ABG PH 7.476 (7.35-7.45); ABG PO2 95.5 MM HG (80-95); ABG TCO2 25.8 MMOL/L (23-27); Allen Test Positive; Pt O2 Delivery Device Ventilator
[2021-04-19] MEDS ORDERED: POTASSIUM CHLORIDE 20 MEQ TABLET PO ONE (17:45)
[2021-04-19] MEDS: ENOXAPARIN 40 MG/0.4 ML SYRINGE SUBCUT SCH (20:54)
[2021-04-19] MEDS: carvediloL 12.5 MG TABLET PO SCH (20:54)
[2021-04-19] MEDS: MONTELUKAST 10 MG TABLET PO SCH (20:54)
[2021-04-20] MEDS: PANTOPRAZOLE 40 MG VIAL IV SCH (00:10)
[2021-04-20] MEDS: MEROPENEM 500 MG in SODIUM CHLORIDE 0.9% 100 ML IV SCH ×4 (00:10→17:26)
[2021-04-20] MEDS: INSULIN LISPRO 100 UNIT/ML SUBCUT SCH ×4 (00:10→17:02)
[2021-04-20 04:40] LABS: Hematocrit 32.8 VOL% (35.7-47.0); Immature Granulocytes % 0.5 %; Immature Granulocytes Absolute 0.06 #; Lymphocytes # 1.5 10*3/uL (1.4-4.0); Lymphocytes % 13.4 % (21.3-54.2); Mean Corpuscular HGB Conc 32.3 GM/DL (32-36); Mean Corpuscular Volume 96.5 FL (87-102); Mean Platelet Volume 9.8 FL (9.6-12.0); Monocytes % 3.7 % (1.7-12.7); Neutrophils % 82.4 % (38.7-73.9); Platelet Count 162 T/CUMM (130-400)
[2021-04-20 04:45] LABS: Hemoglobin 10.6 GM/DL (12.0-16.0); White Blood Count 11.5 T/CUMM (4-12)
[2021-04-20 05:01] LABS: Albumin 2.9 G/DL (3.4-5.0); Bilirubin,Total 0.5 MG/DL (0.20-1.00); Calcium 8.2 MG/DL (8.5-10.1); Osmolality,Calculated 280.4 MOS/KG (273-304); Potassium 4.1 MMOL/L (3.5-5.1)
[2021-04-20] MEDS: MULTIVITAMIN (CENTRUM) TABLET PO SCH (08:41)
[2021-04-20] MEDS: carvediloL 12.5 MG TABLET PO SCH (08:41)
[2021-04-20] MEDS: ASCORBIC ACID 500 MG TABLET PO SCH (08:42)
[2021-04-20] MEDS: ASPIRIN EC 81 MG TABLET PO SCH (08:43)
[2021-04-20] MEDS: FOLIC ACID 1 MG TABLET PO SCH (08:43)
[2021-04-20] MEDS: ATORVASTATIN 40 MG TABLET PO SCH (08:44)
[2021-04-20] MEDS: THIAMINE 100 MG TABLET PO SCH (08:45)
[2021-04-20] MEDS: CHOLECALCIFEROL 1,000 UNIT TABLET PO SCH (08:45)
[2021-04-20] MEDS: FUROSEMIDE 40 MG/4 ML VIAL IV SCH ×2 (08:48→17:24)
[2021-04-20] MEDS: SACUBITRIL/VALSARTAN 49-51 MG TABLET PO SCH (11:05)
[2021-04-20] MEDS ORDERED: DEXTROMETHORPHAN ER 6 MG/ML 90 ML/BOTTLE PO PRN (22:41)
[2021-04-20] MEDS ORDERED: LORATADINE 10 MG TABLET PO PRN (22:46)
[2021-04-21] MEDS: ENOXAPARIN 40 MG/0.4 ML SYRINGE SUBCUT SCH ×2 (00:15→21:43)
[2021-04-21] MEDS: SACUBITRIL/VALSARTAN 49-51 MG TABLET PO SCH ×3 (00:15→21:43)
[2021-04-21] MEDS: MEROPENEM 500 MG in SODIUM CHLORIDE 0.9% 100 ML IV SCH ×5 (00:15→21:45)
[2021-04-21] MEDS: INSULIN LISPRO 100 UNIT/ML SUBCUT SCH ×5 (00:15→22:55)
[2021-04-21] MEDS: carvediloL 12.5 MG TABLET PO SCH ×3 (00:15→21:43)
[2021-04-21] MEDS: MONTELUKAST 10 MG TABLET PO SCH ×2 (00:16→21:43)
[2021-04-21] MEDS: PANTOPRAZOLE 40 MG VIAL IV SCH ×2 (00:16→21:44)
[2021-04-21 06:32] LABS: Basophils % 0.1 % (0.0-0.8); Eosinophils # 0.1 10*3/uL (0.0-0.87); Eosinophils % 1.2 % (0.00-10.9); Hematocrit 36.8 VOL% (35.7-47.0); Hemoglobin 12.2 GM/DL (12.0-16.0); Immature Granulocytes % 0.4 %; Immature Granulocytes Absolute 0.03 #; Lymphocytes # 2.8 10*3/uL (1.4-4.0); Lymphocytes % 35.4 % (21.3-54.2); Mean Corpuscular HGB Conc 33.2 GM/DL (32-36); Mean Corpuscular Volume 95.6 FL (87-102); Mean Platelet Volume 9.7 FL (9.6-12.0); Monocytes % 5.3 % (1.7-12.7); Neutrophils % 57.6 % (38.7-73.9); Platelet Count 175 T/CUMM (130-400); Red Blood Count 3.85 MC/CUMM (3.8-5.5); Red Cell Distribution Width 12.9 % (9.3-17.3); White Blood Count 7.8 T/CUMM (4-12)
[2021-04-21 07:09] LABS: Albumin 3.2 G/DL (3.4-5.0); Bilirubin,Total 0.4 MG/DL (0.20-1.00); Calcium 8.9 MG/DL (8.5-10.1); Osmolality,Calculated 279.4 MOS/KG (273-304); Potassium 3.6 MMOL/L (3.5-5.1); Total Protein 6.7 G/DL (6.4-8.2)
[2021-04-21] MEDS: MULTIVITAMIN (CENTRUM) TABLET PO SCH (09:00)
[2021-04-21] MEDS: ATORVASTATIN 40 MG TABLET PO SCH (09:00)
[2021-04-21] MEDS: FOLIC ACID 1 MG TABLET PO SCH (09:00)
[2021-04-21] MEDS: ASPIRIN EC 81 MG TABLET PO SCH (09:00)
[2021-04-21] MEDS: THIAMINE 100 MG TABLET PO SCH (09:00)
[2021-04-21] MEDS: CHOLECALCIFEROL 1,000 UNIT TABLET PO SCH (09:00)
[2021-04-21] MEDS: ASCORBIC ACID 500 MG TABLET PO SCH (09:00)
[2021-04-21] MEDS: FUROSEMIDE 40 MG/4 ML VIAL IV SCH ×2 (09:00→15:55)
[2021-04-22] MEDS: MEROPENEM 500 MG in SODIUM CHLORIDE 0.9% 100 ML IV SCH ×3 (03:06→17:07)
[2021-04-22 05:02] LABS: Basophils % 0.5 % (0.0-0.8); Eosinophils # 0.1 10*3/uL (0.0-0.87); Eosinophils % 1.1 % (0.00-10.9); Hematocrit 37.6 VOL% (35.7-47.0); Hemoglobin 12.7 GM/DL (12.0-16.0); Immature Granulocytes % 0.8 %; Immature Granulocytes Absolute 0.05 #; Lymphocytes # 2.5 10*3/uL (1.4-4.0); Lymphocytes % 38.2 % (21.3-54.2); Mean Corpuscular HGB Conc 33.8 GM/DL (32-36); Mean Corpuscular Volume 94.2 FL (87-102); Mean Platelet Volume 9.9 FL (9.6-12.0); Monocytes % 5.8 % (1.7-12.7); Neutrophils % 53.6 % (38.7-73.9); Platelet Count 182 T/CUMM (130-400); Red Blood Count 3.99 MC/CUMM (3.8-5.5); Red Cell Distribution Width 12.7 % (9.3-17.3); White Blood Count 6.4 T/CUMM (4-12)
[2021-04-22 05:35] LABS: Albumin 3.1 G/DL (3.4-5.0); Bilirubin,Total 0.8 MG/DL (0.20-1.00); Calcium 8.6 MG/DL (8.5-10.1); Osmolality,Calculated 280.4 MOS/KG (273-304); Potassium 3.4 MMOL/L (3.5-5.1); Total Protein 6.6 G/DL (6.4-8.2)
[2021-04-22] MEDS: INSULIN LISPRO 100 UNIT/ML SUBCUT SCH ×3 (07:54→18:20)
[2021-04-22] MEDS: ASCORBIC ACID 500 MG TABLET PO SCH (10:05)
[2021-04-22] MEDS: FUROSEMIDE 40 MG TABLET PO SCH ×2 (10:06→17:36)
[2021-04-22] MEDS: carvediloL 6.25 MG TABLET PO SCH ×2 (10:06→21:31)
[2021-04-22] MEDS: ATORVASTATIN 40 MG TABLET PO SCH (10:06)
[2021-04-22] MEDS: THIAMINE 100 MG TABLET PO SCH (10:06)
[2021-04-22] MEDS: ASPIRIN EC 81 MG TABLET PO SCH (10:06)
[2021-04-22] MEDS: CHOLECALCIFEROL 1,000 UNIT TABLET PO SCH (10:06)
[2021-04-22] MEDS: MULTIVITAMIN (CENTRUM) TABLET PO SCH (10:06)
[2021-04-22] MEDS: SACUBITRIL/VALSARTAN 49-51 MG TABLET PO SCH ×2 (10:07→21:31)
[2021-04-22] MEDS: FOLIC ACID 1 MG TABLET PO SCH (10:08)
[2021-04-22] MEDS: ALBUTEROL 2.5 MG/3 ML NEB RESP TX SCH ×3 (11:15→19:32)
[2021-04-22] MEDS: ENOXAPARIN 40 MG/0.4 ML SYRINGE SUBCUT SCH (21:31)
[2021-04-22] MEDS: MONTELUKAST 10 MG TABLET PO SCH (21:31)
[2021-04-22] MEDS: POTASSIUM CHLORIDE 10 MEQ TABLET PO SCH (21:31)
[2021-04-22] MEDS: PANTOPRAZOLE 40 MG VIAL IV SCH (21:31)
[2021-04-23] MEDS: INSULIN LISPRO 100 UNIT/ML SUBCUT SCH ×3 (00:25→12:14)
[2021-04-23] MEDS: MEROPENEM 500 MG in SODIUM CHLORIDE 0.9% 100 ML IV SCH ×3 (00:32→15:51)
[2021-04-23] MEDS: ALBUTEROL 2.5 MG/3 ML NEB RESP TX SCH ×3 (01:00→08:15)
[2021-04-23 05:49] LABS: Basophils % 0.3 % (0.0-0.8); Eosinophils # 0.1 10*3/uL (0.0-0.87); Eosinophils % 1.5 % (0.00-10.9); Hematocrit 37.5 VOL% (35.7-47.0); Hemoglobin 12.3 GM/DL (12.0-16.0); Immature Granulocytes % 0.9 %; Immature Granulocytes Absolute 0.06 #; Lymphocytes # 2.3 10*3/uL (1.4-4.0); Lymphocytes % 35.2 % (21.3-54.2); Mean Corpuscular HGB Conc 32.8 GM/DL (32-36); Mean Corpuscular Volume 94.9 FL (87-102); Monocytes % 6.7 % (1.7-12.7); Neutrophils % 55.4 % (38.7-73.9); Platelet Count 195 T/CUMM (130-400); Red Blood Count 3.95 MC/CUMM (3.8-5.5); Red Cell Distribution Width 12.7 % (9.3-17.3); White Blood Count 6.6 T/CUMM (4-12)
[2021-04-23 06:23] LABS: Calcium 8.5 MG/DL (8.5-10.1); Osmolality,Calculated 278.7 MOS/KG (273-304); Potassium 3.6 MMOL/L (3.5-5.1)
[2021-04-23 06:46] LABS: Platelet Estimate Normal
[2021-04-23 06:47] LABS: Anisocytosis 1+
[2021-04-23] MEDS: ASCORBIC ACID 500 MG TABLET PO SCH (09:26)
[2021-04-23] MEDS: SACUBITRIL/VALSARTAN 49-51 MG TABLET PO SCH (09:26)
[2021-04-23] MEDS: ASPIRIN EC 81 MG TABLET PO SCH (09:26)
[2021-04-23] MEDS: FUROSEMIDE 40 MG TABLET PO SCH (09:26)
[2021-04-23] MEDS: CHOLECALCIFEROL 1,000 UNIT TABLET PO SCH (09:26)
[2021-04-23] MEDS: ATORVASTATIN 40 MG TABLET PO SCH (09:26)
[2021-04-23] MEDS: carvediloL 6.25 MG TABLET PO SCH (09:27)
[2021-04-23] MEDS: FOLIC ACID 1 MG TABLET PO SCH (09:27)
[2021-04-23] MEDS: THIAMINE 100 MG TABLET PO SCH (09:27)
[2021-04-23] MEDS: POTASSIUM CHLORIDE 10 MEQ TABLET PO SCH (09:28)
[2021-04-23] MEDS: MULTIVITAMIN (CENTRUM) TABLET PO SCH (09:28)
[2021-04-23] MEDS ORDERED: DOXYCYCLINE HYCLATE 100 MG CAPSULE PO SCH (12:00)
[2021-04-23 12:28] VITALS: BP 115/77
== END 2021-04-23 14:05 | disposition home or self-care (01) | DRG 208 ==
LOC: EDBD → EDUNIT# → N.ED 18:36 → N.EDINP 20:07 → N.ICU 20:07 → SUATTDRO 20:07 → N.ICU 04-19 03:00 → N.EDINP 04-19 03:10 → N.TELES 04-20 11:39
PROVIDERS: ADMIT Internal Medicine; ATTEND Family Medicine